=== PATIENT | female | born 1950 | race Caucasian/White ===

== ENCOUNTER → 2017-02-24 11:05 | Outpatient (CLI) | payer MEDICARE, OTHER ==
[2013-02-20 13:13] VITALS: BMI 26.6
[~2017-02-24 11:05] MED LIST: MAXZIDE 75/501 TAB PO; PRILOSEC20 MG PO; PROZAC20 MG PO; SYNTHROID125 MCG PO
== END | disposition home or self-care (01) ==
LOC: D.CT 11:05
DX: R51 Headache (principal); R41.3 Other amnesia